=== PATIENT | male | born 1995 | race Caucasian/White ===

== ENCOUNTER 2016-10-03 20:09 | Emergency (ER) | payer OTHER ==
[2016-10-03 20:17] VITALS: TEMP 98.8
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
[2016-10-03 23:10] VITALS: BP 138/73; PULSE 77; RESP 16
== END 2016-10-03 23:07 | disposition home or self-care (01) ==
LOC: EC 20:09
DX: F11.10 Opioid abuse, uncomplicated (principal); Z79.899 Other long term (current) drug therapy; F41.9 Anxiety disorder, unspecified; F17.200 Nicotine dependence, unspecified, uncomplicated
CPT/HCPCS: 80306; 82075; 99284

== ENCOUNTER 2017-03-28 21:23 | Emergency (ER) | payer OTHER ==
[2017-03-28 21:38] VITALS: RESP 16
[2017-03-28] MEDS ORDERED: HYDROcodone/APAP 7.5-325MG 1 EACH TAB PO ONE (23:12)
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
[2017-03-28 23:47] VITALS: BP 122/67; PULSE 84; TEMP 98.4
== END 2017-03-28 23:46 | disposition home or self-care (01) ==
LOC: SUPCPDRO 21:23 → EC 21:23
DX: S01.01XA Laceration without foreign body of scalp, initial encounter (principal); F17.200 Nicotine dependence, unspecified, uncomplicated; Z79.899 Other long term (current) drug therapy; Y04.0XXA Assault by unarmed brawl or fight, initial encounter
CPT/HCPCS: 12001; 70450; 70486; 71020; 72125; 99284

== ENCOUNTER 2017-12-18 03:52 | Emergency (ER) | payer OTHER ==
[2017-12-18] MEDS ORDERED: KETOROLAC 60 MG/2 ML VIAL IM STA (04:26)
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
[2017-12-18 04:54] VITALS: BP 114/61; PULSE 79; RESP 16; TEMP 97.4
== END 2017-12-18 05:22 | disposition home or self-care (01) ==
LOC: EC 03:52
DX: G89.29 Other chronic pain (principal); F41.9 Anxiety disorder, unspecified; R20.2 Paresthesia of skin; F17.200 Nicotine dependence, unspecified, uncomplicated; Z79.891 Long term (current) use of opiate analgesic; Z79.899 Other long term (current) drug therapy
CPT/HCPCS: 99282; 96372; J1885

== ENCOUNTER 2020-09-05 15:32 | Emergency (ER) | payer OTHER ==
[2020-09-05 15:37] VITALS: BP 130/78; PULSE 97; RESP 18; TEMP 98.5
[2020-09-05] MEDS ORDERED: dexAMETHasone 4 MG TAB PO STA (15:44)
--- NOTE | 2020-09-05 15:49 | ED ---
General Adult HPI - General Chief complaint: ENT Stated complaint: sore throat Time Seen by Provider: 09/05/20 15:38 Source: patient, RN notes reviewed Mode of arrival: ambulatory Limitations: no limitations - History of Present Illness Initial comments: Patient is a pleasant 24-year-old male presenting to the emergency Department with complaints of tonsil swelling and pain. Patient states he does get symptoms somewhat frequently. No cough or dyspnea. Patient is tolerating oral intake. No fevers. Patient states he does get small fragments trapped in his tonsils from time to time. - Related Data Home Medications Medication Instructions Recorded Confirmed Dextroamphetamine/Amphetamine 30 mg PO BID 11/30/15 03/28/17 [Adderall] ALPRAZolam [Xanax] 0.5 mg PO HS PRN 02/27/16 03/28/17 Albuterol Sulfate [Proair Hfa] 2 puff INHALATION RT-QID PRN 10/03/16 03/28/17 HYDROcodone/APAP 7.5-325MG [[place] 1 tab PO TID 03/28/17 03/28/17 7.5-325] Loratadine [Claritin] 10 mg PO DAILY PRN 03/28/17 03/28/17 Previous Rx's Medication Instructions Recorded Ibuprofen [Motrin] 800 mg PO Q6HR #20 tab 03/28/17 Cephalexin [Keflex] 500 mg PO QID #40 cap 09/05/20 Allergies Allergy/AdvReac Type Severity Reaction Status Date / Time No Known Allergies Allergy Verified 09/05/20 15:34 Review of Systems ROS Statement: Those systems with pertinent positive or pertinent negative responses have been documented in the HPI. ROS Other: All systems not noted in ROS Statement are negative. Constitutional: Denies: fever, chills Eyes: Denies: eye pain ENT: Reports: throat pain. Denies: ear pain Respiratory: Denies: cough, dyspnea Cardiovascular: Denies: chest pain Endocrine: Denies: fatigue Gastrointestinal: Denies: abdominal pain Genitourinary: Denies: dysuria Musculoskeletal: Denies: back pain Skin: Denies: rash Neurological: Denies: headache, weakness Past Medical History Past Medical History: Asthma History of Any Multi-Drug Resistant Organisms: MRSA Date of last positivie culture/infection: 2019 MDRO Source:: armpit Past Surgical History: Orthopedic Surgery Additional Past Surgical History / Comment(s): ear tubes Past Psychological History: Anxiety, Depression Smoking Status: Current every day smoker Past Alcohol Use History: None Reported Past Drug Use History: None Reported General Exam Limitations: no limitations General appearance: alert, in no apparent distress Head exam: Present: normocephalic Eye exam: Present: normal appearance ENT exam: Present: other (Patient has moderately enlarged tonsils with mild erythema. Multiple crypts) Neck exam: Present: lymphadenopathy Respiratory exam: Present: normal lung sounds bilaterally Cardiovascular Exam: Present: regular rate, normal rhythm GI/Abdominal exam: Present: soft. Absent: tenderness Extremities exam: Present: normal inspection Neurological exam: Present: alert Psychiatric exam: Present: normal affect, normal mood Skin exam: Present: normal color Course Vital Signs 09/05/20 15:35 Temperature 98.5 F Pulse Rate 97 Respiratory 18 Rate Blood Pressure 130/78 O2 Sat by Pulse 97 Oximetry Disposition Clinical Impression: Tonsillitis Disposition: HOME SELF-CARE Condition: Stable Instructions (If sedation given, give patient instructions): Tonsillitis (ED) Additional Instructions: Please follow-up with primary care physician in the next couple days for recheck. Return for not tolerating fluids, difficulty breathing, worsening symptoms or other concerns. Consider ENT follow-up, number provided. [id number] Motrin or Tylenol if needed. [id number]-oybmvys vitamin C and salt water gargle. Prescription was sent to [facility]. Prescriptions: Cephalexin [Keflex] 500 mg PO QID #40 cap Is patient prescribed a controlled substance at d/c from ED?: No Referrals: Khurram Slade MD [STAFF PHYSICIAN] - 1-2 days Bharat Wheatley DO [Doctor of Osteopathic Medicine] - 1-2 days Time of Disposition: 15:46
== END 2020-09-05 15:57 | disposition home or self-care (01) ==
LOC: EC 15:32
DX: J03.90 Acute tonsillitis, unspecified (principal); J45.909 Unspecified asthma, uncomplicated; F41.9 Anxiety disorder, unspecified; F32.9 Major depressive disorder, single episode, unspecified; F17.200 Nicotine dependence, unspecified, uncomplicated; Z79.899 Other long term (current) drug therapy
CPT/HCPCS: 99282; J8540

== ENCOUNTER → 2020-09-15 | Outpatient (CLI) | payer OTHER ==
--- NOTE | 2020-09-15 15:45 | XR ---
Left humerus HISTORY: Pain, trauma 2 views of left humerus on 4 images Post op changes distal humerus and proximal ulna, small ossific density medial to the elbow joint is well-corticated and not felt likely to be acute. Soft tissue account densities are indeterminate with in the soft tissues of the proximal upper extremity. No acute fracture or dislocation is evident. IMPRESSION: Difficult to exclude metallic foreign bodies. Postop changes as described.
--- NOTE | 2020-09-15 15:59 | XR ---
Cervical spine HISTORY: Neck and arm pain, leg pain Findings the cervical spine Correlation prior exam 12/23/2012 There is no significant interval change. No significant foraminal encroachment. Cervical vertebral mendy dies show stable height, alignment, and bone mineralization. Disc spaces and prevertebral soft tissue s are normal. IMPRESSION: Stable exam. No significant abnormality evident.
--- NOTE | 2020-09-15 16:02 | XR ---
Left femur HISTORY: Left leg pain Frontal and lateral views of the left femur submitted on 4 images No comparisons Intramedullary santiago placement is present within the left femur. There are areas of cortical thickening consistent with prior fracture and fracture healing. No evident periostitis. No dislocation. IMPRESSION: Posttraumatic, postprocedural findings. Cortical thickening likely due to fracture healin g, if chronic osteomyelitis is suspected clinically, then additional imaging could be performed for b adrienne evaluation.
== END | disposition home or self-care (01) ==
LOC: RADXRMAIN 14:34
PROVIDERS: ATTEND Nurse Practitioner
DX: M89.8X5 Other specified disorders of bone, thigh (principal); Z98.890 Other specified postprocedural states; Z18.10 Retained metal fragments, unspecified
CPT/HCPCS: 72050

== ENCOUNTER 2020-10-05 04:30 | Emergency (ER) | payer OTHER ==
[2020-10-05 04:38] VITALS: TEMP 97.3
--- NOTE | 2020-10-05 06:13 | ED ---
Psych HPI - General Chief Complaint: Psychiatric Symptoms Stated Complaint: Mental Health Time Seen by Provider: 10/05/20 05:41 Source: patient, EMS Mode of arrival: EMS - History of Present Illness Initial Comments: This patient is a 24-year-old man who presents here to be evaluated for suicidal ideation. The patient states that he is currently at [facility], and has been there for approximately 2 weeks now, where he is undergoing rehabilitation for opioid use. Patient states that for about the first 5 days he was on subutex, and then they stopped that and now he is experiencing withdrawal symptoms, including body aches as well as nausea. MD Complaint: suicidal ideation -: days(s) Associated Psychiatric Symptoms: suicidal ideation History of same: Yes Quality: getting worse Improves With: none Worsens With: none Associated Symptoms: other - Related Data Home Medications Medication Instructions Recorded Confirmed Dextroamphetamine/Amphetamine 30 mg PO BID 11/30/15 03/28/17 [Adderall] ALPRAZolam [Xanax] 0.5 mg PO HS PRN 02/27/16 03/28/17 Albuterol Sulfate [Proair Hfa] 2 puff INHALATION RT-QID PRN 10/03/16 03/28/17 HYDROcodone/APAP 7.5-325MG [[place] 1 tab PO TID 03/28/17 03/28/17 7.5-325] Loratadine [Claritin] 10 mg PO DAILY PRN 03/28/17 03/28/17 Previous Rx's Medication Instructions Recorded Ibuprofen [Motrin] 800 mg PO Q6HR #20 tab 03/28/17 Cephalexin [Keflex] 500 mg PO QID #40 cap 09/05/20 Allergies Allergy/AdvReac Type Severity Reaction Status Date / Time No Known Allergies Allergy Verified 09/05/20 15:34 Review of Systems ROS Statement: Those systems with pertinent positive or pertinent negative responses have been documented in the HPI. ROS Other: All systems not noted in ROS Statement are negative. Constitutional: Denies: fever, weakness Eyes: Denies: vision change Respiratory: Denies: cough, dyspnea Cardiovascular: Denies: chest pain, syncope Gastrointestinal: Reports: nausea. Denies: abdominal pain, vomiting Genitourinary: Denies: dysuria, hematuria Musculoskeletal: Reports: as per HPI, myalgia Skin: Denies: rash Neurological: Denies: headache, weakness, numbness Psychiatric: Reports: depression, suicidal thoughts. Denies: anxiety, auditory hallucinations, visual hallucinations, homicidal thoughts Past Medical History Past Medical History: Asthma History of Any Multi-Drug Resistant Organisms: MRSA Date of last positivie culture/infection: 2019 MDRO Source:: armpit Past Surgical History: Orthopedic Surgery Additional Past Surgical History / Comment(s): ear tubes Past Psychological History: Anxiety, Depression Smoking Status: Current every day smoker Past Alcohol Use History: None Reported Past Drug Use History: Heroin, Marijuana, Methamphetamine, Prescription Drug Abuse General Exam Limitations: no limitations General appearance: alert, in no apparent distress Head exam: Present: atraumatic, normocephalic Eye exam: Present: normal appearance. Absent: scleral icterus, conjunctival injection Respiratory exam: Present: normal lung sounds bilaterally. Absent: respiratory distress, wheezes, rales, rhonchi, stridor Cardiovascular Exam: Present: regular rate, normal rhythm, normal heart sounds. Absent: systolic murmur, diastolic murmur, rubs, gallop GI/Abdominal exam: Present: soft. Absent: distended, tenderness, guarding, rebound Extremities exam: Present: normal inspection, normal capillary refill Neurological exam: Present: alert Psychiatric exam: Present: suicidal ideation. Absent: agitated, anxious, flat affect, manic, homicidal ideation Skin exam: Present: warm, dry, intact, normal color. Absent: rash Course Vital Signs 10/05/20 04:32 Temperature 97.3 F L Pulse Rate 72 Respiratory 16 Rate Blood Pressure 131/80 O2 Sat by Pulse 100 Oximetry Medical Decision Making - Medical Decision Making This patient is 24-year-old man presenting from [facility] with opioid withdrawal symptoms. He is having some suicidal ideation, but after discussion with the crisis team, is feeling better. They had discussed having him follow with someone who may be able to start him on Suboxone, and the patient is happy with this safety plan. - Lab Data Lab Results 10/05/20 Range/Units 06:16 Urine Opiates Screen Not Detected (NotDetected) Ur Oxycodone Screen Not Detected (NotDetected) Urine Methadone Screen Not Detected (NotDetected) Ur Propoxyphene Screen Not Detected (NotDetected) Ur Barbiturates Screen Not Detected (NotDetected) U Tricyclic Antidepress Not Detected (NotDetected) Ur Phencyclidine Scrn Not Detected (NotDetected) Ur Amphetamines Screen Not Detected (NotDetected) U Methamphetamines Scrn Not Detected (NotDetected) U Benzodiazepines Scrn Detected H (NotDetected) Urine Cocaine Screen Not Detected (NotDetected) U Marijuana (THC) Screen Not Detected (NotDetected) Disposition Clinical Impression: Opioid withdrawal, Suicidal ideation Disposition: OTHER INSTITUTION NOT DEFINED Condition: Good Is patient prescribed a controlled substance at d/c from ED?: No Referrals: [facility] [Primary Care Provider] - 1-2 days - Out of Hospital Transfer - Req. Specs Out of Hospital Transfer - Requested Specifics: Other Non-Acute ([facility])
[2020-10-05 06:33] LABS: Amphetamine Screen,Urine Not Detected (NotDetected); Cocaine Screen,Urine Not Detected (NotDetected); Opiate Screen,Urine Not Detected (NotDetected); Phencyclidine Screen,Urine Not Detected (NotDetected)
[2020-10-05 06:34] LABS: Barbiturate Screen,Urine Not Detected (NotDetected); Benzodiazepines Screen,Urine Detected (NotDetected); Methadone Screen, Urine Not Detected (NotDetected); Oxycodone Screen, Urine Not Detected (NotDetected); Tricyclic Antidepressant,Urine Not Detected (NotDetected); Urn Cannabinoid Scrn Not Detected (NotDetected)
[2020-10-05 15:07] VITALS: BP 128/88; PULSE 84; RESP 18
== END 2020-10-05 15:34 | disposition other institution (70) ==
LOC: EC 04:30
DX: R45.851 Suicidal ideations (principal); F11.93 Opioid use, unspecified with withdrawal; J45.909 Unspecified asthma, uncomplicated; F41.9 Anxiety disorder, unspecified; F32.9 Major depressive disorder, single episode, unspecified; F17.200 Nicotine dependence, unspecified, uncomplicated; Z79.899 Other long term (current) drug therapy
CPT/HCPCS: 80306; 82075; 99285